=== PATIENT | male | born 1945 | race Caucasian/White ===

== ENCOUNTER 2023-11-16 10:13 | Day surgery (SDC) | payer MEDICARE, SELFPAY ==
[2023-11-08 09:18] VITALS: BMI 33.5
[2023-11-16] VITALS (10 sets, daily range): BP systolic 127–166; BP diastolic 64–77; PULSE 58–70; RESP 14–17; TEMP 36.3–37; O2SAT 90–99; BMI 33.5
[2023-11-16] MEDS: LACTATED RINGERS 1,000 ML 21 ML IV (10:31)
[2023-11-16] MEDS: ACETAMINOPHEN IV 1,000 MG/100 ML VIAL 400 MG IV (10:34)
--- NOTE | 2023-11-16 11:03 | PM.PREOP ---
Pre-operative Note Interval Note History & Physical reviewed/Exam performed by Physician: Yes Changes to H&P: No
[2023-11-16] MEDS: CEFAZOLIN 2 GM/100 ML PREMIX 100 ML IV (11:40)
--- NOTE | 2023-11-16 12:03 | SUR.OPER ---
Supine on padded OR bed, head on pillow, arms secured on padded arm boards at <90 degrees abduction, legs uncrossed, safety belt at thigh, tape over blanket over lower legs.
[2023-11-16] MEDS: BUPIVACAINE LIPOSOME 266 MG/20 ML VIAL INJ (12:07)
[2023-11-16] MEDS: BUPIVACAINE 0.25% (PF) 30 ML, EPINEPHrine 0.15 MG INJ (12:08)
--- NOTE | 2023-11-16 13:09 | P.OP_ITS ---
Operative Date/Time/Diagnoses Date of procedure: 11/16/23 Time of procedure: 13:00 Pre-op diagnosis: 1. Large right hydrocele Post-op diagnosis: same Procedure & Clinicians Procedure: 1. Right hydrocelectomy. Same procedure as scheduled: Yes Indications: 1. Large right hydrocele. Surgeon: Memo Singh Click Yes if Unassisted: Yes Anesthesia Type: General and Local (1.33% Exparel and 0.25% Marcaine with epinephrine.) Operative Notes Findings: 1. Large, tense right hydrocele. 400 cc of slightly turbid straw-colored fluid drained. 2. Thickened tunica vaginalis. Closure Type: primary Specimen(s): none sent Applied: drain(s) (Ten [place] drain to bulb self suction.) Estimated Blood Loss (mL): 5 Blood products transfused: none Procedure in detail: The patient was positioned supine and was administered general anesthetic. The lower abdomen, genitalia, and groin were then prepped and draped in sterile fashion. 0.25% Marcaine with epinephrine was then used to infiltrate the midline skin and subcutaneous dartos fascia. The needle tip cautery pen was then used to make a longitudinal midline scrotal incision along the raphe. The subcutaneous dartos fascia was divided in the same manner. The appropriate plane was developed between the dartos fashion tunica vaginalis. Blunt dissection was then utilized in a circumferential manner to free and separate the boundaries of the tunica vaginalis from the inner scrotal wall. The entire structure was then delivered from the right hemiscrotum. The tunica vaginalis then divided in the midline using the cautery pen in the fluid contents drained with volume as noted above. Next, the leaflets of the tunica vaginalis were then effaced posteriorly and a running horizontal mattress using 3-0 Monocryl was utilized for the dementia program director repair usual fashion. The repaired, posteriorly oriented tunica vaginalis was then secured to posterior scrotal wall at the inferior pole and just above the upper pole. Exparel was then used to infiltrate the scrotal wall and skin at the right inferolateral aspect of the right hemiscrotum. A 10 [place] Kee drain was then passed from inside to out at this site and positioned appropriately. It was secured to the skin utilizing a double-arm [place] sandal technique in usual fashion. The distal into the drain was trimmed appropriately to length and positioned within the space between the testis and epididymis and the inner scrotal wall. Additional Exparel was then utilized [place] citrate the subcutaneous dartos fascia and skin layer of the midline incision. The genitals fascia was then reapproximated using a running 2-0 Monocryl. The skin layer was reapproximated using a running horizontal mattress of 4-0 Monocryl. The skin surface was then cleaned bacitracin antibiotic ointment was applied liberally. Dry sterile fluffs were then applied to the scrotum and the patient was fitted with an athletic supporter. The patient was then awakened transferred to [facility] and transferred recovery in stable condition. Complications: none Post-operative Condition: stable Disposition: PACU Plan for aftercare: Discharge home.
[2023-11-16] MEDS: OXYCODONE IR 5 MG TABLET PO (13:33)
== END 2023-11-16 14:44 | disposition home or self-care (01) ==
PROVIDERS: PCP Internal Medicine; Referring Provider Specialist; Visit Provider Specialist
PROC: (CPT 55040; principal; 2023-11-16 12:00)
DX: N43.3 Hydrocele, unspecified (principal)
CPT/HCPCS: 55040; C9290; J0136; J0171; J0690; J1100; J2405; J2704; J3010